=== PATIENT | male | born 1995 | race Two or more races ===

== ENCOUNTER 2022-03-06 23:35 | Emergency (ER) | payer OTHER ==
[~2022-03-06] VITALS: Ht 190.5 cm; Wt 108.9 kg
[2022-03-07] MEDS ORDERED: DICLOFENAC POTA50 MG PO (01:24)
== END 2022-03-07 01:40 | disposition home or self-care (01) ==
LOC: ER 23:35
DX: M79.89 Other specified soft tissue disorders (principal)